=== PATIENT | male | born 1970 | race Caucasian/White ===

== ENCOUNTER 2021-01-20 20:55 | Inpatient (IN) | payer OTHER ==
[~2021-01-20] VITALS: Ht 175.3 cm; Wt 84.8 kg
[2021-01-21 07:33] LABS: HEMOGLOBIN 9.7 gm/dl (14.0-17.5); RED BLOOD COUNT 3.82 M/UL (4.20-5.50)
[2021-01-21 07:50] LABS: BUN/CREATININE RATIO 14 (0-10)
[2021-01-21] MEDS ORDERED: HYDROCODON-ACE1 EAC6 PO (17:11)
[2021-01-21] MEDS ORDERED: LIPITOR20 MG PO (17:12)
[2021-01-21] MEDS ORDERED: HUMULIN 70100 UNIT/1 SC (17:12)
[2021-01-21] MEDS ORDERED: LOPRESSOR50 MG PO (17:13)
[2021-01-21] MEDS ORDERED: NORVASC10 MG PO (17:13)
[2021-01-21] MEDS ORDERED: LISINOPRIL20 MG PO (17:13)
[2021-01-22 07:31] LABS: RED BLOOD COUNT 3.62 M/UL (4.20-5.50)
[2021-01-22 07:35] LABS: WHITE BLOOD COUNT 5.1 K/UL (4.5-11.0)
[2021-01-22 08:03] LABS: BUN/CREATININE RATIO 11 (0-10)
[2021-01-22] MEDS ORDERED: TRADJENTA5 MG PO (10:23)
[2021-01-22] MEDS ORDERED: BACTROBAN OINT22 GM TOP (10:25)
[2021-01-22] MEDS ORDERED: GABAPENTIN600 MG PO (17:11)
--- NOTE | 2021-01-23 04:44 | NUR ---
0400 HAVE ATTEMPTED MULTI[LE TIMES TO RESTART BUT UNSUCCESSFUL. EVEN HAD MULTI[LE NURSES TRY NO SUCCESS WITH IV. SALLY HOUSESUPERVISOR NOTIFIRD.
--- NOTE | 2021-01-23 04:45 | NUR ---
0410 SALLY HOLLOWAYERVISOR IN ROOM WITH PT TRYING TO START IV
[2021-01-23 05:24] LABS: HEMOGLOBIN 8.5 gm/dl (14.0-17.5); RED BLOOD COUNT 3.26 M/UL (4.20-5.50); WHITE BLOOD COUNT 5.7 K/UL (4.5-11.0)
--- NOTE | 2021-01-23 05:33 | NUR ---
4391 PT REFUSED SURGICAL BATH AT THIS TIME
[2021-01-23 05:43] LABS: BUN/CREATININE RATIO 11 (0-10)
[2021-01-24 05:16] LABS: HEMOGLOBIN 8.6 gm/dl (14.0-17.5); RED BLOOD COUNT 3.36 M/UL (4.20-5.50)
[2021-01-24 05:22] LABS: WHITE BLOOD COUNT 7.7 K/UL (4.5-11.0)
[2021-01-24 05:40] LABS: BUN/CREATININE RATIO 12 (0-10)
[2021-01-25 04:17] LABS: HEMOGLOBIN 8.8 gm/dl (14.0-17.5); RED BLOOD COUNT 3.4 M/UL (4.20-5.50)
[2021-01-25 04:40] LABS: BUN/CREATININE RATIO 12 (0-10)
[2021-01-26 04:21] LABS: BUN/CREATININE RATIO 11 (0-10)
[2021-01-26] MEDS ORDERED: OXYCODONE HCL10 MG PO (11:02)
[2021-01-26] MEDS ORDERED: LANTUS INS100 UTS/M1 SC (11:02)
[2021-01-26] MEDS ORDERED: HUMALOG 10100 UNITS/ SC (11:02)
[2021-01-26] MEDS ORDERED: OXYCONTIN10 MG PO (12:15)
== END 2021-01-26 14:19 | disposition home or self-care (01) | DRG 239 ==
LOC: M/S 01-21 05:54
PROVIDERS: Internal Medicine; Surgery; ADMIT Internal Medicine
PROC: 0Y6F0ZZ Detachment at Right Knee Region, Open Approach (ICD-10-PCS; principal; 2021-01-21 08:38)
DX: E11.52 Type 2 diabetes mellitus with diabetic peripheral angiopathy with gangrene (principal); A48.0 Gas gangrene; F11.20 Opioid dependence, uncomplicated; M86.9 Osteomyelitis, unspecified; M86.8X7 Other osteomyelitis, ankle and foot; E87.1 Hypo-osmolality and hyponatremia; E87.2 Acidosis; L97.529 Non-pressure chronic ulcer of other part of left foot with unspecified severity; Z20.822 Contact with and (suspected) exposure to COVID-19; E11.69 Type 2 diabetes mellitus with other specified complication; G62.9 Polyneuropathy, unspecified; G89.29 Other chronic pain; E78.5 Hyperlipidemia, unspecified; I10 Essential (primary) hypertension; Z86.19 Personal history of other infectious and parasitic diseases; Z79.4 Long term (current) use of insulin; Z90.49 Acquired absence of other specified parts of digestive tract; Z88.6 Allergy status to analgesic agent; Z82.49 Family history of ischemic heart disease and other diseases of the circulatory system
CPT/HCPCS: 36415; 80048; 80053; 80061; 80202; 82962; 83036; 83540; 83550; 83605; 83735; 85025; 85027; 85045; 87040; 97110; 97161; 97166; J1100; J1650; J2001; J2250; J2270; J2370; J2405; J2543; J2704; J2710; J2765; J3010; J3370; J7030; J7060; J7070; J7120

== ENCOUNTER 2021-02-05 19:55 | Emergency (ER) | payer OTHER ==
[~2021-02-05] VITALS: Ht 175.3 cm; Wt 77.6 kg
[~2021-02-05 19:55] MED LIST: BACTROBAN OINT22 GM TOP; GABAPENTIN600 MG PO; HUMALOG 10100 UNITS/ SC; HUMULIN 70100 UNIT/1 SC; HYDROCODON-ACE1 EAC6 PO; LANTUS INS100 UTS/M1 SC; LIPITOR20 MG PO; LISINOPRIL20 MG PO; LOPRESSOR50 MG PO; NORVASC10 MG PO; OXYCODONE HCL10 MG PO; OXYCONTIN10 MG PO; TRADJENTA5 MG PO
[2021-02-06 00:07] LABS: HEMOGLOBIN 11.7 gm/dl (14.0-17.5); RED BLOOD COUNT 4.44 M/UL (4.20-5.50); WHITE BLOOD COUNT 7.9 K/UL (4.5-11.0)
[2021-02-06 00:22] LABS: BUN/CREATININE RATIO 26 (0-10)
[2021-02-07] MEDS ORDERED: LANTUS100 UNIT/1 SC (10:44)
[2021-02-07] MEDS ORDERED: HYDROCODON-ACE1 EAC2 PO (12:37)
[2021-02-07 20:47] LABS: HEMOGLOBIN 10.5 gm/dl (14.0-17.5)
[2021-02-07 20:48] LABS: RED BLOOD COUNT 3.99 M/UL (4.20-5.50)
== END 2021-02-07 23:35 ==
LOC: ER1 19:55
PROVIDERS: Family Medicine
DX: E11.9 Type 2 diabetes mellitus without complications (principal); Z95.0 Presence of cardiac pacemaker; Z20.822 Contact with and (suspected) exposure to COVID-19
CPT/HCPCS: 0240U; 80053; 82962; 85025; 85652; 86140; 96372; 99283; J1885; Q0177